=== PATIENT | male | born 2000 | race Caucasian/White ===

== ENCOUNTER 2022-09-27 15:09 | Emergency (ER) | payer OTHER, SELFPAY ==
[2022-09-27 15:15] VITALS: BP 121/87; PULSE 105; RESP 16; TEMP 36.1; O2SAT 100; BMI 22.5
--- NOTE | 2022-09-27 15:29 | CRLHL7_ITS ---
For Patients: As a result of the Cures Act, medical imaging exams and procedure reports are released immediately into your electronic medical record. You may view this report before your referring provider. If you have questions, please contact your health care provider. INDICATION: Right dorsal hand pain. Hit with baseball. COMPARISON: None. TECHNIQUE: Right hand 2 views. IMPRESSION: No acute fracture. Alignment is within normal limits. Joint spaces are maintained. Mild soft tissue swelling. Mild positive ulnar variance. Dictated by Tim Vila MD @ 09/27/2022 4:39:41 PM (Electronically Signed)
--- NOTE | 2022-09-27 21:23 | ED_ITS ---
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 Was pitching 4 days ago and the ball was hit back at him striking the back of his right hand. He has since had pain there as well as some numbness/tingling into the 4th and 5th finger. No other injuries apparently sustained. Has been icing. Was suggested to him by trainers? that due to persistence of pain and these symptoms in his fingers that be evaluated for potential fracture. He did fatigue in this week not wanting to miss the end of the season. Related Data Home Medications Medication Instructions Recorded Confirmed No Known Home Medications 09/27/22 09/27/22 Allergies Allergy/AdvReac Type Severity Reaction Status Date / Time No Known Drug Allergies Allergy Verified 09/27/22 15:14 Review of Systems Status of ROS: Reports: 6 or more systems reviewed and unremarkable except as noted in History and below PFSH PFS Social History Smoking Status: Never smoker Do you use any of these nicotine containing products: None How often do you have a drink containing alcohol: never AUDIT-C Alcohol total score: 0 Non-prescribed substance use: denies use service: No Exam Narrative: Exam Narrative: Pleasant. NAD. Skin is warm and dry. He is tall. Moving all extremities without difficulty. Exam of the right hand does show generalized mild swelling and subtle erythema. He is tender to palpation over the dorsum of the palm. There is no palmar bruising. Is able to flex and extend his fingers with good strength. Const: Vital Signs, click to edit/add: Vital Signs - 24 hr 09/27/22 15:15 Temperature 97.0 F L Pulse Rate [Right Pulse Oximeter] 105 H Respiratory Rate 16 Blood Pressure [Ri ght Upper Arm] 121/87 Pulse Oximetry 100 Oxygen Delivery Me thod Room Air Documenting provider has reviewed patient's vital signs: yes Course Vital Signs Vital signs: Initial Vital Signs Temperature 97.0 F L 09/27/22 15:15 Temperature Source Temporal Artery Scan 09/27/22 15:15 Pulse Rate 105 H 09/27/22 15:15 Respiratory Rate 16 09/27/22 15:15 Blood Pressure 121/87 09/27/22 15:15 Blood Pressure Mean 98 09/27/22 15:15 Pulse Oximetry 100 09/27/22 15:15 Oxygen Delivery Method Room Air 09/27/22 15:15 Vital Signs Temperature 97.0 F L 09/27/22 15:15 Pulse Rate 105 H 09/27/22 15:15 Respiratory Rate 16 09/27/22 15:15 Blood Pressure 121/87 09/27/22 15:15 Pulse Oximetry 100 09/27/22 15:15 Oxygen Delivery Method Room Air 09/27/22 15:15 Temperature 97.0 F L 09/27/22 15:15 Pulse Rate 105 H 09/27/22 15:15 Respiratory Rate 16 09/27/22 15:15 Blood Pressure 121/87 09/27/22 15:15 Pulse Oximetry 100 09/27/22 15:15 Oxygen Delivery Method Room Air 09/27/22 15:15 MDM - Extremity Injury (Upper) MDM Narrative Medical decision making narrative: I think this is more of bruising, periosteal bruising and associated pain and tingling from swelling. As he is participating regular in athletics think it would be prudent to go ahead and do an x-ray. Two-view X-ray by my read is negative for acute bony abnormality. Soft tissue swelling. Offered Max wrap See patient discharge plan. Discharge Plan Discharge Clinical Impression: Contusion of hand Patient Disposition: Home, Self-Care Condition: Stable Additional Instructions: I would continue to ice your hand as discussed a couple of times daily over the coming week. If not improved at that point would followup again for re-evaluation. Perhaps Sports Medicine would be a good place to start. Check in with your trainers for further cares. Activity Level: No Restrictions Discharge Diet: Regular Prescriptions: No Action No Known Home Medications Stand Alone Forms: [facility] Info Instructions
== END 2022-09-27 16:30 | disposition home or self-care (01) ==
PROVIDERS: Emergency Provider Family Medicine
DX: S60.221A Contusion of right hand, initial encounter (principal); W21.05XA Struck by basketball, initial encounter
CPT/HCPCS: 73120; 99283